=== PATIENT | female | born 1950 | race Caucasian/White ===

== ENCOUNTER 2025-02-17 08:55 | Emergency (ER) | payer OTHER, MEDICAID ==
[~2025-02-17] VITALS: Ht 165.1 cm; Wt 109.0 kg
[2025-02-17 08:58] VITALS: O2SAT 98
[2025-02-17 09:27] LABS: BASOPHILS % 0.8 % (0.0-2.0); DIFFERENTIAL COMMENT 0; EOSINOPHILS % 0.2 % (0.0-5.0); HEMATOCRIT. 43.6 % (36.0-48.0); HEMOGLOBIN. 14.4 g/dL (12.0-16.0); LYMPHOCYTES % 17.2 % (20.0-50.0); MEAN CORPUSCULAR HEMOGLOBIN 33.6 pg (28.0-32.0); MEAN CORPUSCULAR VOLUME 101.9 fL (81.0-99.0); MEAN PLATELET VOLUME 9.7 fl (7.4-10.4); MONOCYTES % 7.6 % (2.0-8.0); NEUTROPHILS % 74.2 % (40.0-76.0); PLATELET 169 x1000/uL (130-400); RED BLOOD CELL COUNT 4.28 mill/uL (4.2-5.4); RED CELL DISTRIBUTION WIDTH 15.2 % (11.6-14.6); WHITE BLOOD COUNT 6.7 x1000/uL (4.5-11.0)
[2025-02-17 09:42] LABS: CHLORIDE 109 mEq/L (98-107); POTASSIUM 4.1 mEq/L (3.5-5.1); SODIUM 144 mEq/L (136-145)
[2025-02-17 09:43] LABS: CALCIUM 8.6 mg/dL (8.7-10.4); CARBON DIOXIDE 25 mEq/L (21-32)
[2025-02-17 09:48] LABS: CREATININE 1.2 mg/dL (0.6-1.0); GLUCOSE 145 mg/dL (70-105); UREA NITROGEN BLOOD 11 mg/dL (9-23)
[2025-02-17] MEDS: SODIUM CHLORIDE 0.9% 1,000 ML IV ONE (10:00)
[2025-02-17] MEDS: ONDANSETRON HCL 4MG/2ML INJ IV STA ×2 (10:05→13:14)
[2025-02-17] MEDS: MORPHINE SULFATE 4 MG/ML INJ (FOR IV/IM USE) IV STA ×2 (10:05→13:15)
[2025-02-17 10:06] LABS: TROPONIN I HIGH SENSITIVITY 6 ng/L (3.0-34)
[2025-02-17] MEDS: DEXAMETHASONE 4MG/ML 1ML VIAL IV ONE (14:02)
[2025-02-17 16:13] LABS: CLARITY URINE CLEAR (CLEAR); GLUCOSE URINE 3+ (NEGATIVE); KETONES URINE 1+ (NEGATIVE); LEUKOCYTE ESTERASE URINE NEGATIVE (NEGATIVE); NITRITE URINE NEGATIVE (NEGATIVE); OCCULT BLOOD URINE NEGATIVE (NEGATIVE); PROTEIN URINE NEGATIVE (NEGATIVE); SPECIFIC GRAVITY URINE 1.035 (1.005-1.030); UROBILINOGEN URINE 0.2 E.U./dL (0.2-1.0)
[2025-02-17 17:03] LABS: COLOR URINE STRAW (YELLOW)
[2025-02-17 17:04] LABS: BACTERIA URINE NONE SEEN; RBC URINE NONE SEEN /hpf (0-2); SQUAMOUS EPITHELIAL CELL URINE NONE SEEN /lpf (RARE/1+); WBC URINE NONE SEEN /hpf (0-2)
[2025-02-17] MEDS: LABETALOL 5MG/ML 4ML INJ IV ONE (20:32)
[2025-02-17 21:00] VITALS: BP 165/81; PULSE 72; RESP 17; TEMP 37.3; O2SAT 95
== END 2025-02-17 22:23 | disposition short-term general hospital (02) ==
LOC: ER 08:55 → CANBEDREQ 18:03 → ER 22:23
DX: G89.29 Other chronic pain (principal); M54.9 Dorsalgia, unspecified; R53.1 Weakness; I10 Essential (primary) hypertension
CPT/HCPCS: 99291; 72148; 96374; 96375; 72131; 96361; 80048; 81003; 85025; 84484; 36415; 71045; 93005; 96376; J1100; J3490; J2405; J2270; J7030; A4606